=== PATIENT | female | born 1960 | race Caucasian/White ===

== ENCOUNTER → 2021-10-13 | Outpatient (CLI) | payer OTHER ==
[~2021-10-13] MED LIST: AMIT25; ASCO500; ASPI81CH; CYAN500; INTE30I; LEVSOD88; Magnesium500 M1; NAPR220; OMEG1CAP30; Prempro 0.625-1 EACH; VIACTIV SOFT C1 EAC1
== END | disposition home or self-care (01) ==
LOC: LAB SHORT 08:01 → LAB 08:01 → PLD 08:01
DX: L82.1 Other seborrheic keratosis (principal)
CPT/HCPCS: 88305

== ENCOUNTER 2022-10-06 09:27 | Day surgery (SDC) | payer OTHER ==
[~2022-10-06] VITALS: Ht 162.6 cm; Wt 50.9 kg
[2022-10-06] MEDS ORDERED: CENTRUM SILVER1 EAC2 (09:42)
[2022-10-06] MEDS ORDERED: ALORA1 EA11 (09:42)
[2022-10-06] MEDS ORDERED: PROG100 (09:43)
[2022-10-06 12:14] VITALS: BP 114/75
== END 2022-10-06 12:08 | disposition home or self-care (01) ==
LOC: ORSCSDS 09:27
PROVIDERS: Internal Medicine Gastroenterology
PROC: 0DBN8ZX Excision of Sigmoid Colon, Via Natural or Artificial Opening Endoscopic, Diagnostic (ICD-10-PCS; principal; 2022-10-06 10:45)
DX: Z12.11 Encounter for screening for malignant neoplasm of colon (principal); Z86.010 Personal history of colon polyps; D12.5 Benign neoplasm of sigmoid colon; Z79.899 Other long term (current) drug therapy
CPT/HCPCS: 88305; J2704; J7120

== ENCOUNTER 2023-12-02 12:00 | Emergency (ER) | payer OTHER ==
[~2023-12-02] VITALS: Ht 162.6 cm; Wt 59.0 kg
[~2023-12-02 12:00] MED LIST changes: +ALORA1 EA11; +CENTRUM SILVER1 EAC2; +PROG100
[2023-12-02 12:33] LABS: BASOPHILS ABSOLUTE AUTO 0.04 K/mm3 (0.00-0.23); BASOPHILS PERCENT AUTO 1 % (0-2); EOSINOPHILS PERCENT AUTO 2 % (0-6); Hematocrit 37.8 % (33.0-51.0); Hemoglobin 12.7 g/dL (11.5-16.0); IMMATURE GRAN ABSOLUTE AUTO 0.01 K/mm3 (0.00-0.10); IMMATURE GRAN PERCENT AUTO 0 % (0-1); LYMPHOCYTES ABSOLUTE AUTO 1.75 K/mm3 (0.84-5.20); LYMPHOCYTES PERCENT AUTO 31 % (21-46); MONOCYTES ABSOLUTE AUTO 0.38 K/mm3 (0.16-1.47); MONOCYTES PERCENT AUTO 7 % (4-13); Mean Corpuscular HGB 30.4 pg (26.0-34.0); Mean Corpuscular HGB Conc 33.6 g/dL (31.5-36.5); Mean Corpuscular Volume 90 fL (80-100); Mean Platelet Volume 9.4 fL (9.1-12.4); NEUTROPHILS ABSOLUTE AUTO 3.39 K/mm3 (1.96-9.15); NEUTROPHILS PERCENT AUTO 60 % (41-73); Platelet Count 245 K/mm3 (150-400); RDW Coefficient Variation 12.2 % (11.7-14.2); RDW Standard Deviation 40.5 fL (35.1-46.3); Red Blood Cell Count 4.18 M/mm3 (3.80-5.20); White Blood Cell Count 5.67 K/mm3 (4.00-11.30)
[2023-12-02 13:05] LABS: Albumin, Blood 3.6 g/dL (3.4-5.0); Albumin/Globulin Ratio 0.9 (0.8-1.8); Bilirubin, Total 0.3 mg/dL (0.1-1.0); Bun/Creatinine Ratio 27.1 (12.0-20.0); Calcium, Blood 9.1 mg/dL (8.5-10.1); Creatinine, Blood 0.74 mg/dL (0.40-1.00); Globulin, Blood 4.1 g/dL (2.2-4.0); Potassium, Blood 3.9 mmol/L (3.5-5.5); Total Protein, Blood 7.7 g/dL (6.4-8.2)
[2023-12-02] MEDS ORDERED: Acetaminophen 500 MG Tab PO ONE (15:25)
[2023-12-02] MEDS ORDERED: MELOXICAM7.5 MG PO (15:38)
[2023-12-02 16:15] VITALS: BP 147/86
[2023-12-02] MEDS ORDERED: ACET500 PO (16:22)
[2023-12-02] MEDS ORDERED: IBUP600 PO (16:22)
== END 2023-12-02 16:34 | disposition home or self-care (01) ==
LOC: ER 12:00
PROVIDERS: Physician Assistant
DX: R07.89 Other chest pain (principal); Z79.899 Other long term (current) drug therapy; Z88.0 Allergy status to penicillin; Z88.1 Allergy status to other antibiotic agents
CPT/HCPCS: 71046; 80053; 84484; 85025; 85379; 93005; 93010; 99284-25; A9270

== ENCOUNTER 2024-10-12 01:52 | Day surgery (SDC) | payer OTHER ==
[~2024-10-12 01:52] MED LIST changes: +ACET500 PO; +IBUP600 PO; +MELOXICAM7.5 MG PO
[2024-10-12 15:18] VITALS: BP 136/67
[2024-10-12] MEDS ORDERED: PROGESTERONE (15:37)
[2024-10-12] MEDS ORDERED: EUTHYROX50 MC1 PO (15:38)
[2024-10-12] MEDS ORDERED: AMITRIPTYLINE H25 MG PO (15:45)
[2024-10-12] MEDS ORDERED: ESTRADIOL (TWI1 EACH TOP (15:45)
[2024-10-12] MEDS ORDERED: AVONEX PEN30 MCG/0.8 IM (15:45)
[2024-10-12] MEDS ORDERED: OLMESARTAN MEDO20 MG PO (15:45)
[2024-10-12] MEDS ORDERED: IMITREX100 MG PO (15:46)
[2024-10-12] MEDS ORDERED: CALCIUM 500 MG1 EAC2 (15:49)
== END 2024-10-12 15:48 | disposition home or self-care (01) ==
LOC: ATC 01:52
DX: E05.00 Thyrotoxicosis with diffuse goiter without thyrotoxic crisis or storm (principal); H57.89 Other specified disorders of eye and adnexa; I10 Essential (primary) hypertension; E03.9 Hypothyroidism, unspecified; Z88.1 Allergy status to other antibiotic agents; Z88.0 Allergy status to penicillin; Z79.899 Other long term (current) drug therapy
CPT/HCPCS: 96365; J2919

== ENCOUNTER 2024-10-19 06:17 | Day surgery (SDC) | payer OTHER ==
[2024-10-19 15:59] VITALS: BP 124/88
== END 2024-10-19 16:37 | disposition home or self-care (01) ==
LOC: ATC 06:17
DX: E05.00 Thyrotoxicosis with diffuse goiter without thyrotoxic crisis or storm (principal); H57.89 Other specified disorders of eye and adnexa; H04.123 Dry eye syndrome of bilateral lacrimal glands; H25.13 Age-related nuclear cataract, bilateral; I10 Essential (primary) hypertension; E78.5 Hyperlipidemia, unspecified; Z88.0 Allergy status to penicillin; Z88.1 Allergy status to other antibiotic agents; Z79.890 Hormone replacement therapy; Z79.899 Other long term (current) drug therapy
CPT/HCPCS: 96365; J2919

== ENCOUNTER → 2024-10-19 | Outpatient (CLI) | payer OTHER ==
[~2024-10-19] MED LIST changes: +AMITRIPTYLINE H25 MG PO; +AVONEX PEN30 MCG/0.8 IM; +CALCIUM 500 MG1 EAC2; +ESTRADIOL (TWI1 EACH TOP; +EUTHYROX50 MC1 PO; +IMITREX100 MG PO; +OLMESARTAN MEDO20 MG PO; +PROGESTERONE
== END ==
LOC: LAB SHORT 17:09 → LAB 17:09
PROVIDERS: Nurse Practitioner Family
DX: Z01.419 Encounter for gynecological examination (general) (routine) without abnormal findings (principal)
CPT/HCPCS: 87624; G0123

== ENCOUNTER → 2024-10-23 | Outpatient (CLI) | payer OTHER ==
[2024-10-23 17:31] LABS: Campylobacter Sp Not Detected (NOT DETECT); E. Coli O157 Not Detected (NOT DETECT); Enteroaggregative E. coli-EAEC Not Detected (NOT DETECT); Enteropathogenic E. coli-EPEC Not Detected (NOT DETECT); Enterotoxigenic E. coli-ETEC Not Detected (NOT DETECT); Salmonella Sp Not Detected (NOT DETECT); Shiga Toxin-prod E. coli-STEC Not Detected (NOT DETECT); Shigella/Enteroin E. coli-EIEC Not Detected (NOT DETECT); Vibrio Sp Not Detected (NOT DETECT)
== END ==
LOC: LAB 11:15 → LAB SHORT 11:15
PROVIDERS: Nurse Practitioner Family
DX: R19.5 Other fecal abnormalities (principal)
CPT/HCPCS: 87507

== ENCOUNTER 2024-10-26 02:58 | Day surgery (SDC) | payer OTHER ==
[2024-10-26 15:50] VITALS: BP 147/87
== END 2024-10-26 16:28 | disposition home or self-care (01) ==
LOC: ATC 02:58
DX: E05.00 Thyrotoxicosis with diffuse goiter without thyrotoxic crisis or storm (principal); H57.89 Other specified disorders of eye and adnexa; H04.123 Dry eye syndrome of bilateral lacrimal glands; H25.13 Age-related nuclear cataract, bilateral; I10 Essential (primary) hypertension
CPT/HCPCS: 96365; J2919

== ENCOUNTER 2024-11-02 03:49 | Day surgery (SDC) | payer OTHER ==
[2024-11-02 15:58] VITALS: BP 129/91
== END 2024-11-02 16:45 | disposition home or self-care (01) ==
LOC: ATC 03:49
DX: E05.00 Thyrotoxicosis with diffuse goiter without thyrotoxic crisis or storm (principal); H57.89 Other specified disorders of eye and adnexa; H04.123 Dry eye syndrome of bilateral lacrimal glands; H25.13 Age-related nuclear cataract, bilateral; E06.3 Autoimmune thyroiditis; I10 Essential (primary) hypertension; Z79.890 Hormone replacement therapy; Z79.899 Other long term (current) drug therapy; Z88.0 Allergy status to penicillin; Z88.1 Allergy status to other antibiotic agents
CPT/HCPCS: 96365; J2919

== ENCOUNTER 2024-11-09 01:15 | Day surgery (SDC) | payer OTHER ==
[2024-11-09 15:51] VITALS: BP 140/85
== END 2024-11-09 16:30 | disposition home or self-care (01) ==
LOC: ATC 01:15
DX: E05.00 Thyrotoxicosis with diffuse goiter without thyrotoxic crisis or storm (principal); H57.89 Other specified disorders of eye and adnexa; H04.123 Dry eye syndrome of bilateral lacrimal glands; H25.13 Age-related nuclear cataract, bilateral; E06.3 Autoimmune thyroiditis; I10 Essential (primary) hypertension; Z88.0 Allergy status to penicillin; Z88.1 Allergy status to other antibiotic agents; Z79.899 Other long term (current) drug therapy
CPT/HCPCS: 96365; J2919

== ENCOUNTER 2024-11-16 00:55 | Day surgery (SDC) | payer OTHER ==
[2024-11-16 15:54] VITALS: BP 131/79
== END 2024-11-16 16:26 | disposition home or self-care (01) ==
LOC: ATC 00:55
DX: H57.89 Other specified disorders of eye and adnexa (principal); E05.00 Thyrotoxicosis with diffuse goiter without thyrotoxic crisis or storm; E06.3 Autoimmune thyroiditis; I10 Essential (primary) hypertension; G35 Multiple sclerosis; Z88.0 Allergy status to penicillin; Z88.1 Allergy status to other antibiotic agents
CPT/HCPCS: 96365; J2919

== ENCOUNTER 2024-11-23 01:24 | Day surgery (SDC) | payer OTHER ==
[2024-11-23 15:55] VITALS: BP 137/86
== END 2024-11-23 16:28 | disposition home or self-care (01) ==
LOC: ATC 01:24
DX: E05.00 Thyrotoxicosis with diffuse goiter without thyrotoxic crisis or storm (principal); H57.89 Other specified disorders of eye and adnexa; I10 Essential (primary) hypertension; E78.5 Hyperlipidemia, unspecified; G35 Multiple sclerosis; E06.3 Autoimmune thyroiditis; Z88.0 Allergy status to penicillin; Z88.1 Allergy status to other antibiotic agents
CPT/HCPCS: 96365; J2919

== ENCOUNTER 2024-11-30 01:35 | Day surgery (SDC) | payer OTHER ==
[2024-11-30 16:22] VITALS: BP 128/74
== END 2024-11-30 17:08 | disposition home or self-care (01) ==
LOC: ATC 01:35
DX: E05.00 Thyrotoxicosis with diffuse goiter without thyrotoxic crisis or storm (principal); H57.89 Other specified disorders of eye and adnexa; I10 Essential (primary) hypertension; G35 Multiple sclerosis; E78.00 Pure hypercholesterolemia, unspecified; G43.009 Migraine without aura, not intractable, without status migrainosus; Z79.899 Other long term (current) drug therapy; Z88.0 Allergy status to penicillin; Z88.1 Allergy status to other antibiotic agents
CPT/HCPCS: 96365; J2919

== ENCOUNTER 2024-12-07 03:39 | Day surgery (SDC) | payer OTHER ==
[2024-12-07 16:30] VITALS: BP 149/76
== END 2024-12-07 17:23 | disposition home or self-care (01) ==
LOC: ATC 03:39
DX: E05.00 Thyrotoxicosis with diffuse goiter without thyrotoxic crisis or storm (principal); H57.89 Other specified disorders of eye and adnexa; I10 Essential (primary) hypertension; G35 Multiple sclerosis; Z88.0 Allergy status to penicillin; Z88.1 Allergy status to other antibiotic agents; Z79.899 Other long term (current) drug therapy
CPT/HCPCS: 96365; J2919

== ENCOUNTER 2024-12-14 09:40 | Day surgery (SDC) | payer OTHER ==
[2024-12-14 16:05] VITALS: BP 158/81
== END 2024-12-14 16:34 | disposition home or self-care (01) ==
LOC: ATC 09:40
DX: H57.89 Other specified disorders of eye and adnexa (principal); E05.00 Thyrotoxicosis with diffuse goiter without thyrotoxic crisis or storm; I10 Essential (primary) hypertension; G35 Multiple sclerosis; Z88.0 Allergy status to penicillin; Z88.1 Allergy status to other antibiotic agents
CPT/HCPCS: 96365; J2919

== ENCOUNTER 2024-12-21 00:34 | Day surgery (SDC) | payer OTHER ==
[2024-12-21 16:20] VITALS: BP 131/82
== END 2024-12-21 16:54 | disposition home or self-care (01) ==
LOC: ATC 00:34
DX: H57.89 Other specified disorders of eye and adnexa (principal); E05.00 Thyrotoxicosis with diffuse goiter without thyrotoxic crisis or storm; E06.3 Autoimmune thyroiditis; I10 Essential (primary) hypertension; G35 Multiple sclerosis; Z88.0 Allergy status to penicillin; Z88.1 Allergy status to other antibiotic agents
CPT/HCPCS: 96365; J2919

== ENCOUNTER 2024-12-28 00:17 | Day surgery (SDC) | payer OTHER ==
[2024-12-28 16:08] VITALS: BP 139/79
== END 2024-12-28 16:49 | disposition home or self-care (01) ==
LOC: ATC 00:17
DX: H57.89 Other specified disorders of eye and adnexa (principal); E05.00 Thyrotoxicosis with diffuse goiter without thyrotoxic crisis or storm; E06.3 Autoimmune thyroiditis; I10 Essential (primary) hypertension; G35 Multiple sclerosis; Z88.0 Allergy status to penicillin; Z88.1 Allergy status to other antibiotic agents
CPT/HCPCS: 96365; J2919

== ENCOUNTER 2025-04-01 02:29 | Day surgery (SDC) | payer OTHER ==
[2025-04-01 08:06] VITALS: BP 156/87
[2025-04-01 08:57] VITALS: BP 140/99
[2025-04-01 09:14] VITALS: BP 140/78
[2025-04-01 09:33] VITALS: BP 142/83
[2025-04-01 09:46] VITALS: BP 148/82
[2025-04-01 10:26] VITALS: BP 142/79
== END 2025-04-01 10:28 | disposition home or self-care (01) ==
LOC: ATC 02:29
DX: H57.89 Other specified disorders of eye and adnexa (principal); E06.3 Autoimmune thyroiditis; G35.D Multiple sclerosis, unspecified; I10 Essential (primary) hypertension; E78.5 Hyperlipidemia, unspecified; Z88.0 Allergy status to penicillin; Z88.1 Allergy status to other antibiotic agents; Z79.890 Hormone replacement therapy; Z79.899 Other long term (current) drug therapy
CPT/HCPCS: 96413; J3241